=== PATIENT | male | born 1955 | race Caucasian/White ===

== ENCOUNTER 2017-11-12 14:25 | Inpatient (IN) | payer MEDICARE ==
[2017-11-12 14:25] VITALS: BMI 34.9
--- NOTE | 2017-11-12 15:49 | C.PDOC ---
History Of Present Illness 62yo male, with history of diabetes, chronic renal failure on dialysis for the past 6 years went today for his usual dialysis treatment when he was noted to be tremulous, running a fever and was sent to ER for evaluation. Patient currently reports he has had cough for the past couple days with associated chills. He denies any shortness of breath. Of note, patient is anuric. He denies any abdominal pain, nausea, vomiting, diarrhea. Chief Complaint (Nursing): Fever History Per: Patient History/Exam Limitations: no limitations Associated Symptoms: Chills, Cough Past Medical History Reviewed: Historical Data, Nursing Documentation, Vital Signs Vital Signs: Last Vital Signs Temp 100.1 F H 11/12/17 17:24 Pulse 102 H 11/12/17 17:24 Resp 18 11/12/17 17:24 BP 112/60 11/12/17 15:06 Pulse Ox 95 11/12/17 17:52 - Medical History PMH: Cardia Arrhythmia, CHF, Diabetes, HTN, Hypercholesterolemia, Hyperthyroidism, End Stage Renal Disease (DIALYSIS T-T-S), Chronic Kidney Disease Surgical History: CABG, Coronary Stent (Diagonal branch 12/08), Pacemaker, Tonsillectomy - [facility] Procedures CONTINUOUS INVASIVE MECHANICAL VENTILATION <96 CONSEC HRS (04/12/14) CORONAR ARTERIOGR-2 CATH (12/09/13) HEMODIALYSIS (09/13/14) INSERT ENDOTRACHEAL TUBE (04/12/14) INSERTION OF ONE VASCULAR STENT (12/09/13) INSRT OF DRUG-ELUTING CORON ARTERY STENTS(S) (12/09/13) LEFT HEART CARDIAC CATH (10/22/13) LT HEART ANGIOCARDIOGRAM (10/22/13) OTHER BRONCHOSCOPY (09/13/14) PERCUTANEOUS TRANSLUMINAL CORONARY ANGIOPLASTY [PTCA] (12/09/13) PROCEDURE ON SINGLE VESSEL (12/09/13) THORACENTESIS (08/18/14) THORACOSCOPIC EXCISION OF LESION OR TISSUE OF LUNG (09/13/14) THORACOSCOPIC PLEURAL BIOPSY (09/13/14) VACCINATION NEC (08/18/14) Family History: States: Unknown Family Hx - Social History Hx Tobacco Use: No Hx Alcohol Use: No Hx Substance Use: No - Immunization History Hx Tetanus Toxoid Vaccination: Yes Hx Influenza Vaccination: Yes Hx Pneumococcal Vaccination: Yes Review Of Systems Except As Marked, All Systems Reviewed And Found Negative. Constitutional: Positive for: Fever, Chills Respiratory: Positive for: Cough Gastrointestinal: Negative for: Nausea, Vomiting, Abdominal Pain, Diarrhea Physical Exam - Physical Exam Appears: Non-toxic Skin: Warm, Dry, No Cyanotic Head: Atraumatic, Normacephalic Eye(s): bilateral: Normal Inspection Neck: Normal ROM, Supple Chest: Symmetrical Cardiovascular: Rhythm Regular (S1S2 sounds normal ) Respiratory: Rales (bibasilar rales noted) Gastrointestinal/Abdominal: Normal Exam, Bowel Sounds, Soft, No Tenderness Extremity: Other (fistula noted right forearm) Pulses: Left Radial: Normal, Right Radial: Normal, Left Dorsalis Pedis: Normal, Right Dorsalis Pedis: Normal Neurological/Psych: Oriented x3, Normal Speech, Normal Cognition ED Course And Treatment - Laboratory Results Result Diagrams: 11/12/17 16:15 11/12/17 16:15 O2 Sat by Pulse Oximetry: 95 (RA) Pulse Ox Interpretation: Normal Medical Decision Making Medical Decision Making: Pt with pos influenza,noted to have RML infiltrate as well as borderline hypoxia at 91%.Case discussed with Dr Burnett and Dr Hoffmann.Will admit,abiotics and tamiflu initiated Disposition - Disposition Disposition: HOSPITALIZED Condition: FAIR Forms: [facility] (Sinhala) - Clinical Impression Clinical Impression: Fever, Influenza-like illness, Pneumonia - Scribe Statement The provider has reviewed the documentation as recorded by the Scribe (Chica Zuniga) Provider Attestation: All medical record entries made by the Scribe were at my direction and personally dictated by me. I have reviewed the chart and agree that the record accurately reflects my personal performance of the history, physical exam, medical decision making, and the department course for this patient. I have also personally directed, reviewed, and agree with the discharge instructions and disposition.
[2017-11-12 16:21] LABS: BASO # 0.1 K/uL (0.0-0.2); BASO % 0.9 % (0.0-2.0); EOS # 0.2 K/uL (0.0-0.7); EOS % 2.3 % (0.0-4.0); LYMPH # 0.3 K/uL (1.0-4.3); LYMPH % 3.4 % (20.0-40.0); MEAN CELL VOLUME 90.4 fL (80.0-94.0); MEAN CORPUSCULAR HGB CONC 33.2 g/dL (33.0-37.0); MEAN PLATELET VOLUME 9.3 fL (7.2-11.7); MONO # 1.1 K/uL (0.0-0.8); MONO % 12.4 % (0.0-10.0); NEUT # 6.9 K/uL (1.8-7.0); NRBC % 0.1 % (0.0-2.0); PLATELET COUNT 149 K/uL (130-400); RBC 4.77 Mil/uL (4.40-5.90); RED CELL DISTRIBUTION WIDTH 16.5 % (11.5-14.5); WHITE BLOOD COUNT 8.6 K/uL (4.8-10.8)
[2017-11-12 16:25] LABS: HEMOGLOBIN 14.3 g/dL (12.0-18.0)
[2017-11-12 16:33] LABS: ALBUMIN 4.2 g/dL (3.5-5.0); CALCIUM 9.5 mg/dl (8.6-10.4)
--- NOTE | 2017-11-12 16:44 | RAD ---
HISTORY: SOB COMPARISON: Chest x-ray performed 09/22/14 TECHNIQUE: Chest, one view. FINDINGS: Examination limited by habitus. LUNGS: Patchy right middle lobe opacities suspicious for pneumonia. Interstitial prominence may reflect infection or edema. PLEURA: No significant pleural effusion identified. No definite pneumothorax . CARDIOVASCULAR: Cardiomegaly. Median sternotomy wires. Left-sided AICD. OSSEOUS STRUCTURES: Degenerative changes. VISUALIZED UPPER ABDOMEN: Unremarkable. OTHER FINDINGS: None. IMPRESSION: Patchy right middle lobe opacities suspicious for pneumonia. Interstitial prominence may reflect infection or edema. Recommend follow-up to resolution. Cardiomegaly. Median sternotomy wires. Left-sided AICD.
[2017-11-12] MEDS ORDERED: Sodium Chloride 0.9% 500 ML IV ONE ×2 (16:51→17:00)
[2017-11-12 17:09] LABS: EOSINOPHIL 1 % (0-4); LYMPHOCYTE 7 % (20-40); MONOCYTE 11 % (0-10); NEUTROPHIL 81 % (50-75); PLATELET ESTIMATE NORMAL (NORMAL); TOTAL CELLS COUNTED 100
[2017-11-12] MEDS ORDERED: Piperacillin/Tazobact 3.375 GM in Sodium Chloride 100 ML IVPB SCH (18:00)
[2017-11-12] MEDS ORDERED: Vancomycin 1 gm/NS 200 ml 1 GM/200 ML BAG IVPB ONE (19:00)
[2017-11-12] MEDS: Piperacill/Tazo 2.25gm in Dex 2.25 GM/50 ML BAG IVPB SCH (20:51)
--- NOTE | 2017-11-12 22:50 | CP.PCM.CON ---
History of Present Illness - History of Present Illness History of Present Illness: REASONS FOR CONSULT : ESRD ON HD TTS ANEMIA OF CKD .. H/H GOOD PT IS WELL KNOWN TO OUR RENAL SERVICE ,, ON HD TTS WITH [facility] SR ADMITTED FOR FLU A AND R MIDDLE LOBE INFILTRATE ALL PREVIOUS EMR REVIEWED .. LABS REVIEWED .. CASE D/W ER ATTENDING History Of Present Illness 62yo male, with history of diabetes, chronic renal failure on dialysis for the past 6 years went today for his usual dialysis treatment when he was noted to be tremulous, running a fever and was sent to ER for evaluation. Patient currently reports he has had cough for the past couple days with associated chills. He denies any shortness of breath. Of note, patient is anuric. He denies any abdominal pain, nausea, vomiting, diarrhea. Chief Complaint (Nursing): Fever History Per: Patient History/Exam Limitations: no limitations Associated Symptoms: Chills, Cough Past Medical History Reviewed: Historical Data, Nursing Documentation, Vital Signs Vital Signs: Last Vital Signs Temp 100.1 F H 11/12/17 17:24 Pulse 102 H 11/12/17 17:24 Resp 18 11/12/17 17:24 BP 112/60 11/12/17 15:06 Pulse Ox 95 11/12/17 17:52 - Medical History PMH: Cardia Arrhythmia, CHF, Diabetes, HTN, Hypercholesterolemia, Hyperthyroidism, End Stage Renal Disease (DIALYSIS T-T-S), Chronic Kidney Disease Surgical History: CABG, Coronary Stent (Diagonal branch 12/08), Pacemaker, Tonsillectomy - [facility] Procedures Past Patient History - Past Medical History & Family History Past Medical History?: Yes - Past Social History Smoking Status: Never Smoked - CARDIAC Hx Cardia Arrhythmia: Yes Hx Congestive Heart Failure: Yes Hx Hypercholesterolemia: Yes Hx Hypertension: Yes Hx Pacemaker: Yes - NEUROLOGICAL HX Cerebrovascular Accident: Yes (many years ago) Hx Paralysis: No - HEENT Hx HEENT Problems: No - RENAL Hx Chronic Kidney Disease: Yes - ENDOCRINE/METABOLIC Hx Hyperthyroidism: Yes - HEMATOLOGICAL/ONCOLOGICAL Hx Blood Disorders: No Hx Blood Transfusions: No Hx Blood Transfusion Reaction: No - INTEGUMENTARY Hx Dermatological Problems: No - MUSCULOSKELETAL/RHEUMATOLOGICAL Hx Falls: No - GASTROINTESTINAL Hx Gastrointestinal Disorders: No - GENITOURINARY/GYNECOLOGICAL Hx Genitourinary Disorders: No - PSYCHIATRIC Hx Substance Use: No - SURGICAL HISTORY Hx Coronary Artery Bypass Graft: Yes Hx Coronary Stent: Yes (Diagonal branch 12/08) Hx Tonsillectomy: Yes - ANESTHESIA Hx Anesthesia: Yes Hx Anesthesia Reactions: No Hx Malignant Hyperthermia: No Meds Allergies/Adverse Reactions: Allergies Allergy/AdvReac Type Severity Reaction Status Date / Time No Known Allergies Allergy Verified 11/12/17 14:39 - Medications Medications: Current Medications Acetaminophen (Tylenol 325mg Tab) 650 mg PO Q6 PRN PRN Reason: Fever >100.4 F Albuterol Sulfate (Albuterol 0.083% Inhal Haydee (2.5 Mg/3 Ml) Ud) 2.5 mg IH Q8 [facility] Allopurinol (Zyloprim) 100 mg PO DAILY [facility] Amlodipine Besylate (Norvasc) 5 mg PO DAILY [facility] Ergocalciferol (Drisdol 50,000 Intl Units Cap) 1 cap PO QWK [facility] Gabapentin (Neurontin) 300 mg PO BID [facility] Heparin Sodium (Porcine) (Heparin) 5,000 units SC Q12 [facility] Home Med (B Complex W-C No.20/Folic Acid [Renal Caps Softgel]) 1 mg PO BID [facility] Home Med (Beclomethasone Dipropionate [Qvar 80 Mcg]) 0.08 mg IH BID [facility] Home Med (Insulin Glargine,Hum.Rec.Anlog [Lantus Solostar]) 30 unit SQ HS [facility] Home Med (Linaclotide [Linzess]) 290 mcg PO DAILY [facility] Piperacillin Sod/Tazobactam Sod (Zosyn 2.25 Gm Iv Premix) 2.25 gm in 50 mls @ 100 mls/hr IVPB Q8H [facility] Last Admin: 11/12/17 20:51 Dose: 100 mls/hr Piperacillin Sod/Tazobactam Sod (Zosyn 2.25 Gm Iv Premix) 2.25 gm in 50 mls @ 100 mls/hr IVPB Q6H [facility] Insulin Aspart (Novolog) 0 unit SC ACHS [facility] PRN Reason: Protocol Labetalol HCl (Trandate) 300 mg PO BID [facility] Oseltamivir Phosphate (Tamiflu Cap) 75 mg PO DAILY [facility] Stop: 11/17/17 22:24 Pantoprazole Sodium (Protonix Ec Tab) 40 mg PO DAILY [facility] Sevelamer Carbonate (Renvela) 800 mg PO TID [facility] Zolpidem Tartrate (Ambien) 5 mg PO HS PRN PRN Reason: Insomnia Results - Vital Signs Recent Vital Signs: Last Vital Signs Temp 102.7 F H 11/12/17 20:40 Pulse 76 11/12/17 18:35 Resp 18 11/12/17 18:35 BP 113/71 11/12/17 18:35 Pulse Ox 99 11/12/17 18:35 - Labs Result Diagrams: 11/12/17 16:15 11/12/17 16:15 Labs: Laboratory Results - last 24 hr 11/12/17 11/12/17 11/12/17 15:49 16:15 16:15 WBC 8.6 RBC 4.77 Hgb 14.3 D Hct 43.1 MCV 90.4 MCH 30.0 MCHC 33.2 RDW 16.5 H Plt Count 149 MPV 9.3 Neut % (Auto) 81.0 H Lymph % (Auto) 3.4 L Parmer % (Auto) 12.4 H Eos % (Auto) 2.3 Baso % (Auto) 0.9 Neut # (Auto) 6.9 Lymph # (Auto) 0.3 L Parmer # (Auto) 1.1 H Eos # (Auto) 0.2 Baso # (Auto) 0.1 Neutrophils % (Manual) 81 H Lymphocytes % (Manual) 7 L Monocytes % (Manual) 11 H Eosinophils % (Manual) 1 Platelet Estimate Normal Sodium 136 Potassium 5.0 Chloride 85 L Carbon Dioxide 37 H Anion Gap 20 BUN 24 H Creatinine 4.6 H Est GFR ( Amer) 16 Est GFR (Non-Af Amer) 13 Random Glucose 189 H Lactic Acid Calcium 9.5 Total Bilirubin 0.8 AST 9 L ALT 11 L Alkaline Phosphatase 151 H Total Protein 8.6 H Albumin 4.2 Globulin 4.4 H Albumin/Globulin Ratio 1.0 Acetaminophen Influenza Typ A,B (EIA) Pos for influenza a H 11/12/17 11/12/17 16:15 17:22 WBC RBC Hgb Hct MCV MCH MCHC RDW Plt Count MPV Neut % (Auto) Lymph % (Auto) Parmer % (Auto) Eos % (Auto) Baso % (Auto) Neut # (Auto) Lymph # (Auto) Parmer # (Auto) Eos # (Auto) Baso # (Auto) Neutrophils % (Manual) Lymphocytes % (Manual) Monocytes % (Manual) Eosinophils % (Manual) Platelet Estimate Sodium Potassium Chloride Carbon Dioxide Anion Gap BUN Creatinine Est GFR ( Amer) Est GFR (Non-Af Amer) Random Glucose Lactic Acid 2.9 H Calcium Total Bilirubin AST ALT Alkaline Phosphatase Total Protein Albumin Globulin Albumin/Globulin Ratio Acetaminophen < 10.0 L Influenza Typ A,B (EIA) Assessment & Plan - Assessment and Plan (Free Text) Assessment: ESRD ON HD TTS ,, TO BE C/O ANEMIA OF CKD .. H/H EXCELLENT .. HOLD EPO PNEUMONIA ON IVAB MMP P : C/O HD ON TTS .. PT COMPLETED HIS HD TODAY C/O CURRENT MEDS C/O IVAB RENAL AND DIABETIC DIET - Date & Time Date: 11/12/17 Time: 17:00
[2017-11-13] MEDS: Piperacill/Tazo 2.25gm in Dex 2.25 GM/50 ML BAG IVPB SCH ×3 (03:00→19:21)
[2017-11-13] MEDS ORDERED: Piperacill/Tazo 2.25gm in Dex 2.25 GM/50 ML BAG IVPB SCH ×2 (04:00→10:00)
[2017-11-13] MEDS ORDERED: Albuterol 0.083% Inhal Sol (2.5 mg/3 mL) UD IH SCH (06:00)
--- NOTE | 2017-11-13 06:52 | HP ---
HISTORY OF PRESENT ILLNESS: This is a 62-year-old male with history of multiple medical problems including end-stage renal disease, on hemodialysis, was referred from dialysis center because of fever and rigors. The patient was evaluated in the emergency room and he was found to have temperature of 102.7, as well as positive for influenza and pneumonia. Subsequently, the patient was admitted for further management. The patient denied to have any chest pain or shortness of breath. Positive symptoms of cough. Other review of system is negative. ALLERGIES: NO KNOWN ALLERGIES. MEDICATIONS: As per MAR. SOCIAL HISTORY: No history of smoking, EtOH or substance abuse. PAST MEDICAL HISTORY: Hypertension; end-stage renal disease, on hemodialysis; type 2 diabetes mellitus. PHYSICAL EXAMINATION: GENERAL/VITAL SIGNS: The patient is in bed comfortable, not in any cardiopulmonary distress at the time of this examination with temperature 102.7, blood pressure 113/71, respiratory rate 18 and pulse 102. HEENT: Pupils are equal and reactive to light. Normal-appearing mucosa of the conjunctivae, oropharynx and nasal membrane mucosa. NECK: Supple. No JVD. No carotid bruit. No lymph nodes. No thyromegaly. CHEST/LUNGS: Bilateral symmetrical expansion. Positive bilateral basilar rales. CARDIOVASCULAR SYSTEM: PMI not localized. S1 and S2. No additional sounds. ABDOMEN: Normoactive bowel sounds. No tenderness. No organomegaly. No masses. EXTREMITIES: No cyanosis, no clubbing, no edema. IT SALES REPRESENTATIVE: Alert, awake, oriented x2. No neurological deficit could be appreciated. ASSESSMENT: 1. Healthcare-acquired pneumonia. 2. Influenza A positive. 3. Pneumonia. 4. End-stage renal disease, on hemodialysis. PLAN: We will start the patient on Tamiflu 75 mg once a day, Zosyn and vancomycin, Nephrology consult for dialysis orders, and we will resume the patient's home medications. Discussed the patient's condition with the patient as well as his at the bedside. Mi Hoffmann MD
[2017-11-13] MEDS ORDERED: Home Med 1 UNIT (Linaclotide [Linzess] 290 MCG) PO SCH ×2 (10:00)
[2017-11-13] MEDS ORDERED: [UNRECOGNIZED DRUG - REMARK] PO SCH (10:00)
[2017-11-13] MEDS ORDERED: BECLOMETHASONE DIPROPIONATE 0.08 MG IH SCH (10:00)
[2017-11-13] MEDS: Pantoprazole 40 mg EC Tab PO SCH (10:26)
[2017-11-13] MEDS: Multivitamin Vitamin B Complex (Nephro-Vite) Tab PO SCH (10:26)
[2017-11-13] MEDS: (Novolog) Insulin Aspart, Recombinant 100 u/ml 10 ml vial SC SCH ×4 (10:27→22:17)
[2017-11-13] MEDS: Oseltamivir 6 MG/ML PO SCH (12:43)
--- NOTE | 2017-11-13 17:06 | CP.PCM.CON ---
History of Present Illness - History of Present Illness History of Present Illness: INFECTIOUS DISEASE CONSULT; HPI; 62-year-old male with history of ESRD on hemodialysis TTS, for the past 6 years who was admitted on 11/12/17 as he was referred from dialysis unit when he was noted to be running a fever and increased tremulousness. Patient also complained of cough for the past couple of days with associated chills. In the ER chest x-ray revealed patchy right middle lobe opacities suggestive of pneumonia.Influenza rapid antigen test revealed positive for influenza A. Patient was started on Tamiflu,, Zosyn and one dose of vancomycin 1 g was given on 11/12/17. INFECTIOUS DISEASE CONSULTATION REQUESTED BY PMD DR HEARD FOR PNEUMONIA AND INFLUENZA A. Patient denies any abdominal pain, nausea or vomiting or diarrhea. Patient denies any headache. Patient states he is had these tremors for some time. Denies history of seizure disorder but states he has history off permanent pacemaker, CAD with stent and CABG. PATIENT DENIES ANY SICK CONTACTS OR ANY RECENT TRAVEL EXCEPT GOING TO THE DIALYSIS UNIT. ALLERGY; NKA PMH: Cardia Arrhythmia, CHF, Diabetes, HTN, Hypercholesterolemia, Hyperthyroidism, End Stage Renal Disease (DIALYSIS T-T-S), Chronic Kidney Disease Surgical History: CABG, Coronary Stent (Diagonal branch 12/08), Pacemaker, Tonsillectomy - [facility] Procedures CONTINUOUS INVASIVE MECHANICAL VENTILATION <96 CONSEC HRS (04/12/14) CORONAR ARTERIOGR-2 CATH (12/09/13) HEMODIALYSIS (09/13/14) INSERT ENDOTRACHEAL TUBE (04/12/14) INSERTION OF ONE VASCULAR STENT (12/09/13) INSRT OF DRUG-ELUTING CORON ARTERY STENTS(S) (12/09/13) LEFT HEART CARDIAC CATH (10/22/13) LT HEART ANGIOCARDIOGRAM (10/22/13) OTHER BRONCHOSCOPY (09/13/14) PERCUTANEOUS TRANSLUMINAL CORONARY ANGIOPLASTY [PTCA] (12/09/13) PROCEDURE ON SINGLE VESSEL (12/09/13) THORACENTESIS (08/18/14) THORACOSCOPIC EXCISION OF LESION OR TISSUE OF LUNG (09/13/14) THORACOSCOPIC PLEURAL BIOPSY (09/13/14) VACCINATION NEC (08/18/14) Family History: States: Unknown Family Hx - Social History Hx Tobacco Use: No Hx Alcohol Use: No Hx Substance Use: No - Immunization History Hx Tetanus Toxoid Vaccination: Yes Hx Influenza Vaccination: Yes Hx Pneumococcal Vaccination: Yes Review of Systems - Constitutional Constitutional: Chills, Fever. absent: Headache - EENT Eyes: absent: Change in Vision Ears: absent: Disequilibrium Nose/Mouth/Throat: absent: Nasal Congestion, Sinus Pain - Cardiovascular Cardiovascular: absent: Chest Pain, Palpitations - Respiratory Respiratory: Cough, Chest Congestion. absent: Change in Mucous Color - Gastrointestinal Gastrointestinal: absent: Constipation, Diarrhea - Genitourinary Additional comments: PATIENT ANURIC ON HEMODIALYSIS TTS. - Musculoskeletal Musculoskeletal: Back Pain, Radiating Pain into Limb - Neurological Neurological: Tremor. absent: Focal Weakness, Headaches, Sensory Deficit - Hematologic/Lymphatic Hematologic: As Per HPI. absent: Easy Bleeding Past Patient History - Past Medical History & Family History Past Medical History?: Yes - Past Social History Smoking Status: Current Some Days Smoker - CARDIAC Hx Cardia Arrhythmia: Yes Hx Congestive Heart Failure: Yes Hx Hypercholesterolemia: Yes Hx Hypertension: Yes Hx Pacemaker: Yes - NEUROLOGICAL HX Cerebrovascular Accident: Yes (many years ago) Hx Paralysis: No - HEENT Hx HEENT Problems: No - RENAL Date of Last Dialysis Treatment: 11/11/17 - ENDOCRINE/METABOLIC Hx Hyperthyroidism: Yes - HEMATOLOGICAL/ONCOLOGICAL Hx Blood Disorders: No Hx Blood Transfusions: No Hx Blood Transfusion Reaction: No - INTEGUMENTARY Hx Dermatological Problems: No - MUSCULOSKELETAL/RHEUMATOLOGICAL Hx Falls: No - GASTROINTESTINAL Hx Gastrointestinal Disorders: No - GENITOURINARY/GYNECOLOGICAL Hx Genitourinary Disorders: No - PSYCHIATRIC Hx Substance Use: No - SURGICAL HISTORY Hx Coronary Artery Bypass Graft: Yes Hx Coronary Stent: Yes (Diagonal branch 12/08) Hx Tonsillectomy: Yes - ANESTHESIA Hx Anesthesia: Yes Hx Anesthesia Reactions: No Hx Malignant Hyperthermia: No Has any member of the family had a problem w/ anesthesia?: No Meds Allergies/Adverse Reactions: Allergies Allergy/AdvReac Type Severity Reaction Status Date / Time No Known Allergies Allergy Verified 11/12/17 14:39 - Medications Medications: Current Medications Acetaminophen (Tylenol 325mg Tab) 650 mg PO Q6 PRN PRN Reason: Fever >100.4 F Last Admin: 11/13/17 00:41 Dose: 650 mg Albuterol Sulfate (Albuterol 0.083% Inhal Haydee (2.5 Mg/3 Ml) Ud) 2.5 mg IH RQ8 [facility] Allopurinol (Zyloprim) 100 mg PO DAILY [facility] Last Admin: 11/13/17 10:26 Dose: 100 mg Amlodipine Besylate (Norvasc) 5 mg PO DAILY [facility] Last Admin: 11/13/17 10:27 Dose: 5 mg Ergocalciferol (Drisdol 50,000 Intl Units Cap) 1 cap PO Q7D [facility] Gabapentin (Neurontin) 300 mg PO BID [facility] Last Admin: 11/13/17 10:26 Dose: 300 mg Heparin Sodium (Porcine) (Heparin) 5,000 units SC Q12 [facility] Last Admin: 11/13/17 10:27 Dose: 5,000 units Piperacillin Sod/Tazobactam Sod (Zosyn 2.25 Gm Iv Premix) 2.25 gm in 50 mls @ 100 mls/hr IVPB Q8H [facility] Last Admin: 11/13/17 12:34 Dose: 100 mls/hr Insulin Aspart (Novolog) 0 unit SC ACHS [facility] PRN Reason: Protocol Last Admin: 11/13/17 12:44 Dose: 2 unit Insulin Glargine (Lantus) 30 unit SC HS [facility] Labetalol HCl (Trandate) 300 mg PO BID [facility] Last Admin: 11/13/17 10:28 Dose: 300 mg Mometasone Furoate (Asmanex Twisthaler 220 Mcg) 1 puff INH RQ24 [facility] Oseltamivir Phosphate (Tamiflu Susp) 30 mg PO DAILY [facility] Last Admin: 11/13/17 12:43 Dose: 30 mg Pantoprazole Sodium (Protonix Ec Tab) 40 mg PO DAILY [facility] Last Admin: 11/13/17 10:26 Dose: 40 mg Sevelamer Carbonate (Renvela) 800 mg PO TIDCC [facility] Last Admin: 11/13/17 12:34 Dose: 800 mg Vitamin B Complex/Vit C/Folic Acid (Nephro-Joss) 1 tab PO DAILY [facility] Last Admin: 11/13/17 10:26 Dose: 1 tab Zolpidem Tartrate (Ambien) 5 mg PO HS PRN PRN Reason: Insomnia Physical Exam - Constitutional Appears: No Acute Distress - Head Exam Head Exam: NORMAL INSPECTION - Eye Exam Eye Exam: EOMI, PERRL - ENT Exam ENT Exam: Normal Oropharynx - Neck Exam Neck exam: Positive for: Normal Inspection - Respiratory Exam Respiratory Exam: Rhonchi (RIGHT-SIDED.). absent: Wheezes - Cardiovascular Exam Cardiovascular Exam: Tachycardia, REGULAR RHYTHM, +S1, +S2 - GI/Abdominal Exam GI & Abdominal Exam: Normal Bowel Sounds, Soft. absent: Tenderness - Extremities Exam Extremities exam: Positive for: pedal pulses present. Negative for: calf tenderness, pedal edema - Neurological Exam Neurological exam: Alert, CN II-XII Intact, Oriented x3, Reflexes Normal - Skin Skin Exam: Dry, Normal Color, Warm Results - Vital Signs Recent Vital Signs: Last Vital Signs Temp 99.1 F 11/13/17 07:20 Pulse 92 H 11/13/17 07:20 Resp 20 11/13/17 07:20 BP 143/73 11/13/17 07:20 Pulse Ox 95 11/13/17 07:20 - Labs Result Diagrams: 11/12/17 16:15 11/12/17 16:15 Labs: Laboratory Results - last 24 hr 11/12/17 11/12/17 11/12/17 16:15 17:22 23:23 Neutrophils % (Manual) 81 H Lymphocytes % (Manual) 7 L Monocytes % (Manual) 11 H Eosinophils % (Manual) 1 Platelet Estimate Normal POC Glucose (mg/dL) 156 H Random Vancomycin Acetaminophen < 10.0 L 11/13/17 11/13/17 11/13/17 06:52 07:35 11:46 Neutrophils % (Manual) Lymphocytes % (Manual) Monocytes % (Manual) Eosinophils % (Manual) Platelet Estimate POC Glucose (mg/dL) 154 H 168 H Random Vancomycin 16.07 Acetaminophen - Imaging and Cardiology Chest x-ray Status: Report reviewed by me (chest x-ray patchy right middle lobe opacities suggestive of pneumonia.) Assessment & Plan (1) Pneumonia Status: Acute (2) Influenza A Status: Acute (3) Fever Status: Acute (4) Congestive heart failure Status: Chronic Priority: Low (5) Coronary artery disease Status: Chronic Priority: Low (6) ESRD (end stage renal disease) on dialysis Status: Chronic Priority: Medium (7) Type II diabetes mellitus Status: Chronic Priority: Low - Assessment and Plan (Free Text) Plan: PLAN; PANCULTURES. ESR CRP. MRSA SCREEN-NARES. SPUTUM gRAM STAIN AND CULTURE CONTINUE iv BY MOUTH TAMIFLU 30 MG BY MOUTH DAILY.11/12/17. CONTINUE ZOSYN 2.25 EVERY 8 HOURLY.11/12/17. CONTINUE iv VANCOMYCIN 1 G POST EACH HEMODIALYSIS TTS X 5 DOSES. 11/12/17 MONITOR VANCO TROUGH LEVELS AND KEEP BETWEEN 10 AND 20. [place] PRECAUTIONS FOR INFLUENZ A. WE WILL FOLLOW ALONG WITH YOU AND MAKE ANTIBIOTIC ADJUSTMENTS NEEDED. THANK YOU.
[2017-11-13] MEDS: Albuterol 0.083% Inhal Sol (2.5 mg/3 mL) UD IH SCH ×2 (17:16→23:51)
[2017-11-13] MEDS: (Lantus) Insulin Glargine, Recombinant SC SCH (22:16)
[2017-11-14] MEDS: Piperacill/Tazo 2.25gm in Dex 2.25 GM/50 ML BAG IVPB SCH ×3 (03:20→21:00)
--- NOTE | 2017-11-14 03:54 | PN ---
DATE: 11/13/2017 SUBJECTIVE: The patient is seen today on 11/13/2017. He is not in any cardiopulmonary distress. OBJECTIVE: VITAL SIGNS: Blood pressure 143/73, temperature 99.1, respiratory rate 20, and pulse 92. HEENT: Pupils are equal and reactive to light. Normal-appearing mucosa of the conjunctivae, oropharynx and nasal membrane mucosa. NECK: Supple. No JVD. No carotid bruit. No lymph node. No thyromegaly. CHEST/LUNGS: Bilateral symmetrical expansion. Good air exchange. No rales or rhonchi. CARDIOVASCULAR SYSTEM: PMI not localized. S1, S2. No additional sounds. ABDOMEN: Normoactive bowel sounds. No tenderness. No organomegaly. No masses. EXTREMITIES: No cyanosis, no clubbing, no edema. SOCIAL WORKER: Alert, awake, oriented x2. No neurological deficit could be appreciated. ASSESSMENT: 1. Influenza A viral syndrome. 2. Pneumonia, healthcare-acquired pneumonia. 3. End-stage renal disease, on hemodialysis. 4. Hypertension. PLAN: Continue current IV antibiotics, ID consult and follow recommendations. Continue respiratory isolation. Adjust the doses of antibiotics according to kidney function. Mi Hoffmann MD
[2017-11-14] MEDS: (Novolog) Insulin Aspart, Recombinant 100 u/ml 10 ml vial SC SCH ×4 (07:43→22:00)
[2017-11-14] MEDS: Albuterol 0.083% Inhal Sol (2.5 mg/3 mL) UD IH SCH ×3 (08:07→23:34)
[2017-11-14] MEDS: Mometasone 220 mcg/puff-14 puff Inh INH SCH (08:35)
[2017-11-14] MEDS: Multivitamin Vitamin B Complex (Nephro-Vite) Tab PO SCH (10:32)
[2017-11-14 10:35] LABS: BASO % 0.6 % (0.0-2.0); EOS # 0.2 K/uL (0.0-0.7); EOS % 2.7 % (0.0-4.0); HEMOGLOBIN 13.4 g/dL (12.0-18.0); LYMPH % 15.6 % (20.0-40.0); MEAN CELL VOLUME 90.3 fL (80.0-94.0); MEAN CORPUSCULAR HEMOGLOBIN 30.1 pg (27.0-31.0); MEAN CORPUSCULAR HGB CONC 33.4 g/dL (33.0-37.0); MEAN PLATELET VOLUME 10.2 fL (7.2-11.7); MONO # 1.5 K/uL (0.0-0.8); MONO % 24.5 % (0.0-10.0); NEUT # 3.5 K/uL (1.8-7.0); NEUT % 56.6 % (50.0-75.0); RBC 4.44 Mil/uL (4.40-5.90); RED CELL DISTRIBUTION WIDTH 16.8 % (11.5-14.5); WHITE BLOOD COUNT 6.3 K/uL (4.8-10.8)
[2017-11-14] MEDS: Labetalol Hydrochloride 300 mg Tab PO SCH ×2 (10:35→18:51)
[2017-11-14] MEDS: Pantoprazole 40 mg EC Tab PO SCH (10:36)
[2017-11-14] MEDS: Oseltamivir 6 MG/ML PO SCH ×2 (10:36→18:50)
[2017-11-14] MEDS: Vancomycin 1 gm/NS 200 ml 1 GM/200 ML BAG IVPB SCH ×2 (10:36→18:52)
[2017-11-14 10:38] LABS: PLATELET COUNT 113 K/uL (130-400)
[2017-11-14 11:12] LABS: ALBUMIN 3.8 g/dL (3.5-5.0); CALCIUM 8.8 mg/dl (8.6-10.4)
[2017-11-14 11:35] LABS: BANDS 6 % (0-2); BASOPHIL 2 % (0-2); EOSINOPHIL 1 % (0-4); LYMPHOCYTE 13 % (20-40); MONOCYTE 15 % (0-10); NEUTROPHIL 62 % (50-75); REACTIVE LYMPHOCYTES 1 % (0-0); TOTAL CELLS COUNTED 100
[2017-11-14 11:36] LABS: ANISOCYTOSIS SLIGHT; OVALOCYTES SLIGHT; PLATELET ESTIMATE SLIGHTLY DECREASED (NORMAL)
[2017-11-14 11:46] LABS: BASO # 0.1 K/uL (0.0-0.2); BASO % 1.1 % (0.0-2.0); EOS # 0.2 K/uL (0.0-0.7); EOS % 3.6 % (0.0-4.0); HEMOGLOBIN 13.5 g/dL (12.0-18.0); LYMPH % 16.9 % (20.0-40.0); MEAN CELL VOLUME 91.4 fL (80.0-94.0); MEAN CORPUSCULAR HEMOGLOBIN 29.9 pg (27.0-31.0); MEAN CORPUSCULAR HGB CONC 32.7 g/dL (33.0-37.0); MEAN PLATELET VOLUME 10.2 fL (7.2-11.7); MONO # 1.5 K/uL (0.0-0.8); NEUT # 3.3 K/uL (1.8-7.0); NEUT % 53.4 % (50.0-75.0); NRBC % 0.2 % (0.0-2.0); RBC 4.52 Mil/uL (4.40-5.90); RED CELL DISTRIBUTION WIDTH 16.9 % (11.5-14.5); WHITE BLOOD COUNT 6.1 K/uL (4.8-10.8)
[2017-11-14] MEDS: (Lantus) Insulin Glargine, Recombinant SC SCH (21:28)
--- NOTE | 2017-11-14 22:29 | CP.PCM.PN ---
Subjective - Date & Time of Evaluation Date of Evaluation: 11/14/17 Time of Evaluation: 22:29 - Subjective Subjective: TEMP 99.0 VS NOTED SEEN ON HD TODAY. C/O COUGH. DENIES SOB OR CHEST PAIN LABS REVIEWED. wbc 6.1 WITH 6% BANDS H/H STABLE pLATELETS 112. DECREASING. ESR 25, CRP >15 bLOOD CULTURES NEGATIVE GROWTH TO DATE SPUTUM CULTURE SENSITIVITY -PENDING Objective - Vital Signs/Intake and Output Vital Signs (last 24 hours): Temp Pulse Resp BP Pulse Ox 97.6 F 52 L 18 150/76 100 11/14/17 17:45 11/14/17 17:45 11/14/17 17:45 11/14/17 17:45 11/14/17 17:45 Intake and Output: 11/14/17 11/15/17 18:59 06:59 Intake Total 240 Output Total 5 Balance 235 - Medications Medications: Current Medications Acetaminophen (Tylenol 325mg Tab) 650 mg PO Q6 PRN PRN Reason: Fever >100.4 F Last Admin: 11/13/17 00:41 Dose: 650 mg Albuterol Sulfate (Albuterol 0.083% Inhal Haydee (2.5 Mg/3 Ml) Ud) 2.5 mg IH RQ8 [facility] Last Admin: 11/14/17 20:32 Dose: Not Given Allopurinol (Zyloprim) 100 mg PO DAILY [facility] Last Admin: 11/14/17 10:36 Dose: Not Given Amlodipine Besylate (Norvasc) 5 mg PO DAILY [facility] Last Admin: 11/14/17 10:35 Dose: Not Given Ergocalciferol (Drisdol 50,000 Intl Units Cap) 1 cap PO Q7D [facility] Gabapentin (Neurontin) 300 mg PO BID [facility] Last Admin: 11/14/17 18:51 Dose: 300 mg Heparin Sodium (Porcine) (Heparin) 5,000 units SC Q12 [facility] Last Admin: 11/14/17 21:28 Dose: 5,000 units Piperacillin Sod/Tazobactam Sod (Zosyn 2.25 Gm Iv Premix) 2.25 gm in 50 mls @ 100 mls/hr IVPB Q8H [facility] Last Admin: 11/14/17 21:00 Dose: 100 mls/hr Vancomycin/Sodium Chloride (Vancomycin 1 Gm/Ns 200 Ml) 1 gm in 200 mls @ 166.7 mls/hr IVPB TTS [facility] Stop: 11/19/17 10:01 Last Admin: 11/14/17 18:52 Dose: 166.7 mls/hr Insulin Aspart (Novolog) 0 unit SC ACHS [facility] PRN Reason: Protocol Last Admin: 11/14/17 18:51 Dose: Not Given Insulin Glargine (Lantus) 30 unit SC HS [facility] Last Admin: 11/14/17 21:28 Dose: 30 units Labetalol HCl (Normodyne) 300 mg PO BID [facility] Last Admin: 11/14/17 18:51 Dose: 300 mg Mometasone Furoate (Asmanex Twisthaler 220 Mcg) 1 puff INH RQ24 [facility] Last Admin: 11/14/17 08:35 Dose: Not Given Oseltamivir Phosphate (Tamiflu Susp) 30 mg PO DAILY [facility] Last Admin: 11/14/17 18:50 Dose: 30 mg Pantoprazole Sodium (Protonix Ec Tab) 40 mg PO DAILY [facility] Last Admin: 11/14/17 10:36 Dose: Not Given Sevelamer Carbonate (Renvela) 800 mg PO TIDCC [facility] Last Admin: 11/14/17 18:52 Dose: 800 mg Vitamin B Complex/Vit C/Folic Acid (Nephro-Joss) 1 tab PO DAILY [facility] Last Admin: 11/14/17 10:32 Dose: 1 tab Zolpidem Tartrate (Ambien) 5 mg PO HS PRN PRN Reason: Insomnia - Labs Labs: 11/14/17 11:30 11/14/17 10:21 - Constitutional Appears: No Acute Distress - Head Exam Head Exam: NORMAL INSPECTION - Eye Exam Eye Exam: EOMI, PERRL. absent: Scleral icterus - ENT Exam ENT Exam: Normal Oropharynx - Neck Exam Neck Exam: Normal Inspection - Respiratory Exam Respiratory Exam: Rhonchi (RIGHT-SIDED.) - Cardiovascular Exam Cardiovascular Exam: REGULAR RHYTHM, +S1, +S2 - GI/Abdominal Exam GI & Abdominal Exam: Soft, Normal Bowel Sounds. absent: Organomegaly - Extremities Exam Extremities Exam: absent: Calf Tenderness, Pedal Edema - Neurological Exam Neurological Exam: Awake, CN II-XII Intact, Oriented x3, Reflexes Normal - Psychiatric Exam Psychiatric exam: Normal Mood - Skin Skin Exam: Normal Color, Warm Assessment and Plan (1) Pneumonia Status: Acute (2) Influenza A Status: Acute (3) Fever Status: Acute (4) Congestive heart failure Status: Chronic (5) Coronary artery disease Status: Chronic (6) ESRD (end stage renal disease) on dialysis Status: Chronic (7) Type II diabetes mellitus Status: Chronic - Assessment and Plan (Free Text) Plan: CONTINUE iv BY MOUTH TAMIFLU 30 MG BY MOUTH DAILY.11/12/17. CONTINUE ZOSYN 2.25 EVERY 8 HOURLY.11/12/17. CONTINUE iv VANCOMYCIN 1 G POST EACH HEMODIALYSIS TTS X 5 DOSES. 11/12/17 MONITOR VANCO TROUGH LEVELS AND KEEP BETWEEN 10 AND 20. [place] PRECAUTIONS FOR INFLUENZ A. F/U CULTURES AND ADJUST ANTIBIOTICS.
--- NOTE | 2017-11-14 23:34 | CP.PCM.PN ---
Subjective - Date & Time of Evaluation Date of Evaluation: 11/14/17 Time of Evaluation: 15:00 - Subjective Subjective: SEEN ON RENAL F/U SEEN ON HD FEELS MUCH BETTER LESS COUGH .. LESS SOB Objective - Vital Signs/Intake and Output Vital Signs (last 24 hours): Temp Pulse Resp BP Pulse Ox 97.6 F 52 L 18 150/76 100 11/14/17 17:45 11/14/17 17:45 11/14/17 17:45 11/14/17 17:45 11/14/17 17:45 Intake and Output: 11/14/17 11/15/17 18:59 06:59 Intake Total 240 Output Total 5 Balance 235 - Medications Medications: Current Medications Acetaminophen (Tylenol 325mg Tab) 650 mg PO Q6 PRN PRN Reason: Fever >100.4 F Last Admin: 11/13/17 00:41 Dose: 650 mg Albuterol Sulfate (Albuterol 0.083% Inhal Haydee (2.5 Mg/3 Ml) Ud) 2.5 mg IH RQ8 [facility] Last Admin: 11/14/17 20:32 Dose: Not Given Allopurinol (Zyloprim) 100 mg PO DAILY [facility] Last Admin: 11/14/17 10:36 Dose: Not Given Amlodipine Besylate (Norvasc) 5 mg PO DAILY [facility] Last Admin: 11/14/17 10:35 Dose: Not Given Ergocalciferol (Drisdol 50,000 Intl Units Cap) 1 cap PO Q7D [facility] Gabapentin (Neurontin) 300 mg PO BID [facility] Last Admin: 11/14/17 18:51 Dose: 300 mg Heparin Sodium (Porcine) (Heparin) 5,000 units SC Q12 [facility] Last Admin: 11/14/17 21:28 Dose: 5,000 units Piperacillin Sod/Tazobactam Sod (Zosyn 2.25 Gm Iv Premix) 2.25 gm in 50 mls @ 100 mls/hr IVPB Q8H [facility] Last Admin: 11/14/17 21:00 Dose: 100 mls/hr Vancomycin/Sodium Chloride (Vancomycin 1 Gm/Ns 200 Ml) 1 gm in 200 mls @ 166.7 mls/hr IVPB TTS [facility] Stop: 11/19/17 10:01 Last Admin: 11/14/17 18:52 Dose: 166.7 mls/hr Insulin Aspart (Novolog) 0 unit SC ACHS [facility] PRN Reason: Protocol Last Admin: 11/14/17 18:51 Dose: Not Given Insulin Glargine (Lantus) 30 unit SC HS [facility] Last Admin: 11/14/17 21:28 Dose: 30 units Labetalol HCl (Trandate) 100 mg PO BID [facility] Mometasone Furoate (Asmanex Twisthaler 220 Mcg) 1 puff INH RQ24 [facility] Last Admin: 11/14/17 08:35 Dose: Not Given Oseltamivir Phosphate (Tamiflu Susp) 30 mg PO DAILY [facility] Last Admin: 11/14/17 18:50 Dose: 30 mg Pantoprazole Sodium (Protonix Ec Tab) 40 mg PO DAILY [facility] Last Admin: 11/14/17 10:36 Dose: Not Given Sevelamer Carbonate (Renvela) 800 mg PO TIDCC [facility] Last Admin: 11/14/17 18:52 Dose: 800 mg Vitamin B Complex/Vit C/Folic Acid (Nephro-Joss) 1 tab PO DAILY [facility] Last Admin: 11/14/17 10:32 Dose: 1 tab Zolpidem Tartrate (Ambien) 5 mg PO HS PRN PRN Reason: Insomnia - Labs Labs: 11/14/17 11:30 11/14/17 10:21 Assessment and Plan - Assessment and Plan (Free Text) Assessment: ESRD ON HD TTS ANEMIA OF CKD .. H/H GOOD FLU A .. PNA .. ON IVAB MMP P C/O HD TTS C/O PRESENT MEDS
--- NOTE | 2017-11-15 04:12 | PN ---
DATE: 11/14/2017 SUBJECTIVE: The patient is seen today on 11/14/2017. He is not in any cardiopulmonary distress. The patient was seen during hemodialysis. OBJECTIVE: VITAL SIGNS: Blood pressure is 145/97, temperature 97.6, respiratory rate 18, and pulse 50. HEENT: Pupils are equal, reactive to light. Normal-appearing mucosa of the conjunctivae, oropharynx and nasal membrane mucosa. NECK: Supple. No JVD. No carotid bruit. No lymph node. No thyromegaly. CHEST AND LUNGS: Bilateral symmetrical expansion. Good air exchange. No rales, no rhonchi. CARDIOVASCULAR SYSTEM: PMI not localized. S1 and S2. No additional sounds. ABDOMEN: Normoactive bowel sounds. No tenderness. No organomegaly. No masses. EXTREMITIES: No cyanosis, no clubbing, no edema. REAL ESTATE INVESTMENT ANALYST: Alert, awake, oriented x2. No neurological deficit could be appreciated. ASSESSMENT: 1. Healthcare-related pneumonia. 2. Positive for influenza A viral syndrome. 3. End-stage renal disease, on hemodialysis. 4. Hypertension. 5. Sinus bradycardia. PLAN: We will decrease labetalol to 100 mg twice a day with parameters. Continue current medications. Mi Hoffmann MD
[2017-11-15] MEDS: Piperacill/Tazo 2.25gm in Dex 2.25 GM/50 ML BAG IVPB SCH ×3 (04:18→21:00)
[2017-11-15 07:42] LABS: BASO # 0.1 K/uL (0.0-0.2); EOS # 0.4 K/uL (0.0-0.7); EOS % 7.2 % (0.0-4.0); HEMOGLOBIN 13.2 g/dL (12.0-18.0); LYMPH # 0.9 K/uL (1.0-4.3); LYMPH % 15.4 % (20.0-40.0); MEAN CELL VOLUME 90.2 fL (80.0-94.0); MEAN CORPUSCULAR HEMOGLOBIN 29.9 pg (27.0-31.0); MEAN CORPUSCULAR HGB CONC 33.2 g/dL (33.0-37.0); MEAN PLATELET VOLUME 10.2 fL (7.2-11.7); MONO # 1.1 K/uL (0.0-0.8); MONO % 19.5 % (0.0-10.0); NEUT # 3.2 K/uL (1.8-7.0); NEUT % 56.9 % (50.0-75.0); NRBC % 0.1 % (0.0-2.0); RBC 4.41 Mil/uL (4.40-5.90); RED CELL DISTRIBUTION WIDTH 16.5 % (11.5-14.5); WHITE BLOOD COUNT 5.7 K/uL (4.8-10.8)
[2017-11-15 07:53] LABS: ALBUMIN 3.7 g/dL (3.5-5.0); ALT/SGPT 23 U/L (21-72); AST/SGOT 12 U/L (17-59); BLOOD UREA NITROGEN 36 mg/dL (9-20); CALCIUM 8.9 mg/dl (8.6-10.4); GFR AFRICAN-AMERICAN 11; GFR NON-AFRICAN AMERICAN 9
[2017-11-15] MEDS: Albuterol 0.083% Inhal Sol (2.5 mg/3 mL) UD IH SCH ×2 (08:10→17:08)
[2017-11-15] MEDS: Mometasone 220 mcg/puff-14 puff Inh INH SCH (08:12)
[2017-11-15 08:16] LABS: HEPATITIS B SURFACE AG Negative (NEGATIVE)
[2017-11-15] MEDS: (Novolog) Insulin Aspart, Recombinant 100 u/ml 10 ml vial SC SCH ×4 (08:30→22:14)
[2017-11-15] MEDS ORDERED: Pneumococcal 23-Valent Vaccine IM ONE (10:00)
[2017-11-15] MEDS: Multivitamin Vitamin B Complex (Nephro-Vite) Tab PO SCH (10:11)
[2017-11-15] MEDS: Pantoprazole 40 mg EC Tab PO SCH (10:11)
[2017-11-15] MEDS: Oseltamivir 6 MG/ML PO SCH (10:12)
--- NOTE | 2017-11-15 21:49 | CP.PCM.PN ---
Subjective - Date & Time of Evaluation Date of Evaluation: 11/15/17 Time of Evaluation: 21:49 - Subjective Subjective: AFEBRILE, oUT OF BED ON CHAIR. sTATES HE IS FEELING MUCH BETTER SOB/COUGH MUCH IMPROVED. lABS REVIEWED; MRSA -NOT DETECTED bLOOD CULTURES -VE GROWTH TO DATE. iNFLUENZA SEROLOGY A POSITIVE SPUTUM FEW PMNS,fEW GRAM-POSITIVE COCCI IMPAIRS.-cULTURE PENDING. Objective - Vital Signs/Intake and Output Vital Signs (last 24 hours): Temp Pulse Resp BP Pulse Ox 97.6 F 73 20 114/61 95 11/15/17 17:14 11/15/17 17:14 11/15/17 17:14 11/15/17 17:14 11/15/17 17:14 Intake and Output: 11/15/17 11/16/17 18:59 06:59 Intake Total 290 Balance 290 - Medications Medications: Current Medications Acetaminophen (Tylenol 325mg Tab) 650 mg PO Q6 PRN PRN Reason: Fever >100.4 F Last Admin: 11/13/17 00:41 Dose: 650 mg Albuterol Sulfate (Albuterol 0.083% Inhal Haydee (2.5 Mg/3 Ml) Ud) 2.5 mg IH RQ8 [facility] Last Admin: 11/15/17 17:08 Dose: Not Given Allopurinol (Zyloprim) 100 mg PO DAILY [facility] Last Admin: 11/15/17 10:11 Dose: 100 mg Amlodipine Besylate (Norvasc) 5 mg PO DAILY [facility] Last Admin: 11/15/17 10:12 Dose: 5 mg Ergocalciferol (Drisdol 50,000 Intl Units Cap) 1 cap PO Q7D [facility] Gabapentin (Neurontin) 100 mg PO BID [facility] Last Admin: 11/15/17 17:56 Dose: 100 mg Heparin Sodium (Porcine) (Heparin) 5,000 units SC Q12 [facility] Last Admin: 11/15/17 10:12 Dose: 5,000 units Piperacillin Sod/Tazobactam Sod (Zosyn 2.25 Gm Iv Premix) 2.25 gm in 50 mls @ 100 mls/hr IVPB Q8H [facility] Last Admin: 11/15/17 14:29 Dose: 100 mls/hr Vancomycin/Sodium Chloride (Vancomycin 1 Gm/Ns 200 Ml) 1 gm in 200 mls @ 166.7 mls/hr IVPB TTS [facility] Stop: 11/19/17 10:01 Last Admin: 11/14/17 18:52 Dose: 166.7 mls/hr Insulin Aspart (Novolog) 0 unit SC ACHS [facility] PRN Reason: Protocol Last Admin: 11/15/17 17:56 Dose: 1 unit Insulin Glargine (Lantus) 30 unit SC HS [facility] Last Admin: 11/14/17 21:28 Dose: 30 units Labetalol HCl (Trandate) 100 mg PO BID [facility] Mometasone Furoate (Asmanex Twisthaler 220 Mcg) 1 puff INH RQ24 [facility] Last Admin: 11/15/17 08:12 Dose: Not Given Oseltamivir Phosphate (Tamiflu Susp) 30 mg PO DAILY [facility] Last Admin: 11/15/17 10:12 Dose: 30 mg Pantoprazole Sodium (Protonix Ec Tab) 40 mg PO DAILY [facility] Last Admin: 11/15/17 10:11 Dose: 40 mg Sevelamer Carbonate (Renvela) 800 mg PO TIDCC [facility] Last Admin: 11/15/17 14:29 Dose: 800 mg Vitamin B Complex/Vit C/Folic Acid (Nephro-Joss) 1 tab PO DAILY [facility] Last Admin: 11/15/17 10:11 Dose: 1 tab Zolpidem Tartrate (Ambien) 5 mg PO PRN PRN Reason: Insomnia - Labs Labs: 11/15/17 07:14 11/15/17 07:14 - Constitutional Appears: No Acute Distress - Head Exam Head Exam: NORMAL INSPECTION - Eye Exam Eye Exam: EOMI, PERRL - ENT Exam ENT Exam: Normal Oropharynx - Neck Exam Neck Exam: Normal Inspection - Respiratory Exam Respiratory Exam: NORMAL BREATHING PATTERN (bilateral breath sounds increased aeration.few rhonchi right side.) - Cardiovascular Exam Cardiovascular Exam: REGULAR RHYTHM, +S1, +S2 - GI/Abdominal Exam GI & Abdominal Exam: Soft, Normal Bowel Sounds - Extremities Exam Extremities Exam: absent: Calf Tenderness, Pedal Edema, Tenderness - Neurological Exam Neurological Exam: Alert, Awake, CN II-XII Intact, Normal Gait, Oriented x3, Reflexes Normal - Psychiatric Exam Psychiatric exam: Normal Mood - Skin Skin Exam: Normal Color, Warm Assessment and Plan (1) Pneumonia Status: Acute (2) Influenza A Status: Acute (3) Fever Status: Acute (4) Congestive heart failure Status: Chronic (5) Coronary artery disease Status: Chronic (6) ESRD (end stage renal disease) on dialysis Status: Chronic (7) Type II diabetes mellitus Status: Chronic - Assessment and Plan (Free Text) Plan: CONTINUE iv BY MOUTH TAMIFLU 30 MG BY MOUTH DAILY.11/12/17. CONTINUE ZOSYN 2.25 EVERY 8 HOURLY.11/12/17. CONTINUE iv VANCOMYCIN 1 G POST EACH HEMODIALYSIS TTS X 5 DOSES. 11/12/17 MONITOR VANCO TROUGH LEVELS AND KEEP BETWEEN 10 AND 20. [place] PRECAUTIONS FOR INFLUENZ A. F/U CULTURES AND ADJUST ANTIBIOTICS. f/u PORTABLE CHEST X-RAY IN A.M. TO EVALUATE RIGHT MIDDLE LOBE PNEUMONIA.
[2017-11-15] MEDS: (Lantus) Insulin Glargine, Recombinant SC SCH (22:25)
[2017-11-16] MEDS: Albuterol 0.083% Inhal Sol (2.5 mg/3 mL) UD IH SCH ×4 (01:30→23:49)
[2017-11-16] MEDS: Piperacill/Tazo 2.25gm in Dex 2.25 GM/50 ML BAG IVPB SCH ×3 (03:15→19:05)
--- NOTE | 2017-11-16 04:35 | PN ---
DATE: 11/15/2017 The patient is seen today on 11/15/2017. OBJECTIVE: VITAL SIGNS: He is afebrile with blood pressure 114/61, temperature 97.6, respiratory rate 20, and pulse 73. HEENT: Pupils are equal and reactive to light. Normal appearing mucosa of the conjunctivae, oropharynx and nasal membrane mucosa. NECK: Supple. No JVD. No carotid bruit. No lymph nodes. No thyromegaly. CHEST/LUNGS: Bilateral symmetrical expansion. Good air exchange. No rales, no rhonchi. CARDIOVASCULAR SYSTEM: PMI not localized. S1 and S2. No additional sounds. ABDOMEN: Normoactive bowel sounds. No tenderness. No organomegaly. No masses. EXTREMITIES: No cyanosis, no clubbing, no edema. DANCE DIRECTOR: Alert, awake, oriented x2. No neurological deficit could be appreciated. ASSESSMENT: 1. Pneumonia. 2. Influenza A positive. 3. Hypertension. 4. End-stage renal disease, on hemodialysis. PLAN: Continue current IV antibiotics and antiviral medications. Continue hemodialysis as per relocation director. Accu-Cheks with insulin coverage as needed. Mi Hoffmann MD
[2017-11-16 07:32] LABS: BASO % 0.8 % (0.0-2.0); EOS # 0.5 K/uL (0.0-0.7); EOS % 8.8 % (0.0-4.0); HEMOGLOBIN 13.2 g/dL (12.0-18.0); LYMPH # 0.9 K/uL (1.0-4.3); LYMPH % 16.8 % (20.0-40.0); MEAN CELL VOLUME 89.9 fL (80.0-94.0); MEAN CORPUSCULAR HEMOGLOBIN 29.9 pg (27.0-31.0); MEAN CORPUSCULAR HGB CONC 33.3 g/dL (33.0-37.0); MEAN PLATELET VOLUME 10.5 fL (7.2-11.7); MONO # 0.8 K/uL (0.0-0.8); MONO % 14.9 % (0.0-10.0); NEUT # 3.3 K/uL (1.8-7.0); NEUT % 58.7 % (50.0-75.0); RBC 4.43 Mil/uL (4.40-5.90); RED CELL DISTRIBUTION WIDTH 16.7 % (11.5-14.5); WHITE BLOOD COUNT 5.6 K/uL (4.8-10.8)
[2017-11-16 07:57] LABS: ALB/GLOB RATIO 1.1 (1.0-2.1); ALBUMIN 3.8 g/dL (3.5-5.0)
[2017-11-16] MEDS: Mometasone 220 mcg/puff-14 puff Inh INH SCH (08:43)
[2017-11-16] MEDS: Oseltamivir 6 MG/ML PO SCH (09:45)
[2017-11-16] MEDS: Vancomycin 1 gm/NS 200 ml 1 GM/200 ML BAG IVPB SCH ×3 (09:46→19:04)
[2017-11-16] MEDS: Multivitamin Vitamin B Complex (Nephro-Vite) Tab PO SCH (09:47)
[2017-11-16] MEDS: Pantoprazole 40 mg EC Tab PO SCH (09:47)
[2017-11-16] MEDS: (Novolog) Insulin Aspart, Recombinant 100 u/ml 10 ml vial SC SCH ×4 (09:48→22:38)
--- NOTE | 2017-11-16 10:39 | RAD ---
HISTORY: right-sided pneumonia COMPARISON: Chest x-ray performed 11/12/17 TECHNIQUE: Chest, one view. FINDINGS: Examination limited by habitus. LUNGS: Increasing bilateral pulmonary infiltrates and interstitial prominence. Small right pleural effusion. No definite pneumothorax. CARDIOVASCULAR: Cardiomegaly. Left-sided AICD. Median sternotomy wires. OSSEOUS STRUCTURES: Degenerative changes. VISUALIZED UPPER ABDOMEN: Unremarkable. OTHER FINDINGS: None. IMPRESSION: Increasing bilateral pulmonary infiltrates and interstitial prominence. Small right pleural effusion. Cardiomegaly. Left-sided AICD. Median sternotomy wires.
--- NOTE | 2017-11-16 11:02 | CP.PCM.PN ---
Subjective - Date & Time of Evaluation Date of Evaluation: 11/16/17 Time of Evaluation: 10:00 - Subjective Subjective: SEEN ON RENAL F/U SEEN ON HD FEELS IMPROVED ALL PREVIOUS EMR REVIEWED Objective - Vital Signs/Intake and Output Vital Signs (last 24 hours): Temp Pulse Resp BP Pulse Ox 97.9 F 75 20 128/70 98 11/16/17 07:50 11/16/17 07:50 11/16/17 07:50 11/16/17 07:50 11/16/17 07:50 Intake and Output: 11/16/17 11/16/17 06:59 18:59 Intake Total 240 Balance 240 - Medications Medications: Current Medications Acetaminophen (Tylenol 325mg Tab) 650 mg PO Q6 PRN PRN Reason: Fever >100.4 F Last Admin: 11/13/17 00:41 Dose: 650 mg Albuterol Sulfate (Albuterol 0.083% Inhal Haydee (2.5 Mg/3 Ml) Ud) 2.5 mg IH RQ8 [facility] Last Admin: 11/16/17 08:10 Dose: 2.5 mg Allopurinol (Zyloprim) 100 mg PO DAILY [facility] Last Admin: 11/16/17 09:47 Dose: 100 mg Amlodipine Besylate (Norvasc) 5 mg PO DAILY [facility] Last Admin: 11/16/17 09:47 Dose: 5 mg Ergocalciferol (Drisdol 50,000 Intl Units Cap) 1 cap PO Q7D [facility] Gabapentin (Neurontin) 100 mg PO BID [facility] Last Admin: 11/16/17 09:47 Dose: 100 mg Piperacillin Sod/Tazobactam Sod (Zosyn 2.25 Gm Iv Premix) 2.25 gm in 50 mls @ 100 mls/hr IVPB Q8H [facility] Last Admin: 11/16/17 03:15 Dose: Not Given Vancomycin/Sodium Chloride (Vancomycin 1 Gm/Ns 200 Ml) 1 gm in 200 mls @ 166.7 mls/hr IVPB TTS [facility] Stop: 11/19/17 10:01 Last Admin: 11/14/17 18:52 Dose: 166.7 mls/hr Insulin Aspart (Novolog) 0 unit SC ACHS [facility] PRN Reason: Protocol Last Admin: 11/16/17 09:48 Dose: Not Given Insulin Glargine (Lantus) 30 unit SC HS [facility] Last Admin: 11/15/17 22:25 Dose: 30 units Labetalol HCl (Trandate) 100 mg PO BID [facility] Last Admin: 11/15/17 18:54 Dose: 100 mg Mometasone Furoate (Asmanex Twisthaler 220 Mcg) 1 puff INH RQ24 [facility] Last Admin: 11/16/17 08:43 Dose: Not Given Oseltamivir Phosphate (Tamiflu Susp) 30 mg PO DAILY [facility] Last Admin: 11/16/17 09:45 Dose: 30 mg Pantoprazole Sodium (Protonix Ec Tab) 40 mg PO DAILY [facility] Last Admin: 11/16/17 09:47 Dose: 40 mg Sevelamer Carbonate (Renvela) 800 mg PO TIDCC [facility] Last Admin: 11/16/17 09:47 Dose: 800 mg Vitamin B Complex/Vit C/Folic Acid (Nephro-Joss) 1 tab PO DAILY [facility] Last Admin: 11/16/17 09:47 Dose: 1 tab Zolpidem Tartrate (Ambien) 5 mg PO HS PRN PRN Reason: Insomnia - Labs Labs: 11/16/17 07:10 11/16/17 07:10 Assessment and Plan - Assessment and Plan (Free Text) Assessment: ESRD ON HD TTS ANEMIA OF CKD .. H/H STABLE FLU A .. PNEUMONIA .. ON IVAB MMP P : C/O CURRENT CARE C/O PRESENT MANAGEMENT
--- NOTE | 2017-11-16 17:51 | CP.PCM.PN ---
Subjective - Date & Time of Evaluation Date of Evaluation: 11/16/17 Time of Evaluation: 17:51 - Subjective Subjective: AFEBRILE, S/P HD TODAY STATES HE IS FEELING MUCH BETTER SOB/COUGH MUCH IMPROVED. lABS REVIEWED; MRSA -NOT DETECTED bLOOD CULTURES -VE GROWTH TO DATE. iNFLUENZA SEROLOGY A POSITIVE SPUTUM FEW PMNS,fEW GRAM-POSITIVE COCCI IMPAIRS. NORMAL LEEANNE Objective - Vital Signs/Intake and Output Vital Signs (last 24 hours): Temp Pulse Resp BP Pulse Ox 97.6 F 74 16 116/93 H 100 11/16/17 15:50 11/16/17 15:50 11/16/17 15:50 11/16/17 17:35 11/16/17 15:20 Intake and Output: 11/16/17 11/16/17 06:59 18:59 Intake Total 240 Balance 240 - Medications Medications: Current Medications Acetaminophen (Tylenol 325mg Tab) 650 mg PO Q6 PRN PRN Reason: Fever >100.4 F Last Admin: 11/13/17 00:41 Dose: 650 mg Albuterol Sulfate (Albuterol 0.083% Inhal Haydee (2.5 Mg/3 Ml) Ud) 2.5 mg IH RQ8 [facility] Last Admin: 11/16/17 16:17 Dose: Not Given Allopurinol (Zyloprim) 100 mg PO DAILY [facility] Last Admin: 11/16/17 09:47 Dose: 100 mg Amlodipine Besylate (Norvasc) 5 mg PO DAILY [facility] Last Admin: 11/16/17 09:47 Dose: 5 mg Ergocalciferol (Drisdol 50,000 Intl Units Cap) 1 cap PO Q7D [facility] Gabapentin (Neurontin) 100 mg PO BID [facility] Last Admin: 11/16/17 09:47 Dose: 100 mg Piperacillin Sod/Tazobactam Sod (Zosyn 2.25 Gm Iv Premix) 2.25 gm in 50 mls @ 100 mls/hr IVPB Q8H [facility] Last Admin: 11/16/17 11:55 Dose: Not Given Vancomycin/Sodium Chloride (Vancomycin 1 Gm/Ns 200 Ml) 1 gm in 200 mls @ 166.7 mls/hr IVPB TTS [facility] Stop: 11/19/17 10:01 Last Admin: 11/16/17 11:55 Dose: Not Given Insulin Aspart (Novolog) 0 unit SC ACHS [facility] PRN Reason: Protocol Last Admin: 11/16/17 11:52 Dose: Not Given Insulin Glargine (Lantus) 30 unit SC HS [facility] Last Admin: 11/15/17 22:25 Dose: 30 units Labetalol HCl (Trandate) 100 mg PO BID [facility] Last Admin: 11/16/17 11:55 Dose: Not Given Mometasone Furoate (Asmanex Twisthaler 220 Mcg) 1 puff INH RQ24 [facility] Last Admin: 11/16/17 08:43 Dose: Not Given Oseltamivir Phosphate (Tamiflu Susp) 30 mg PO DAILY [facility] Last Admin: 11/16/17 09:45 Dose: 30 mg Pantoprazole Sodium (Protonix Ec Tab) 40 mg PO DAILY [facility] Last Admin: 11/16/17 09:47 Dose: 40 mg Sevelamer Carbonate (Renvela) 800 mg PO TIDCC [facility] Last Admin: 11/16/17 13:05 Dose: 800 mg Vitamin B Complex/Vit C/Folic Acid (Nephro-Joss) 1 tab PO DAILY [facility] Last Admin: 11/16/17 09:47 Dose: 1 tab Zolpidem Tartrate (Ambien) 5 mg PO PRN PRN Reason: Insomnia - Labs Labs: 11/16/17 07:10 11/16/17 07:10 - Constitutional Appears: No Acute Distress - Head Exam Head Exam: NORMAL INSPECTION - Eye Exam Eye Exam: EOMI, PERRL - ENT Exam ENT Exam: Normal Oropharynx - Neck Exam Neck Exam: Normal Inspection - Respiratory Exam Respiratory Exam: Rhonchi (SCATTERRED RHONCHI.), NORMAL BREATHING PATTERN - Cardiovascular Exam Cardiovascular Exam: REGULAR RHYTHM, +S1, +S2 - GI/Abdominal Exam GI & Abdominal Exam: Soft, Normal Bowel Sounds - Extremities Exam Extremities Exam: Normal Capillary Refill. absent: Calf Tenderness, Pedal Edema - Psychiatric Exam Psychiatric exam: Normal Mood - Skin Skin Exam: Normal Color, Warm Assessment and Plan (1) Pneumonia Assessment & Plan: F/U CXR AFTER HD. CONTINUE PO TAMIFLUE CONTINUE IV ZOSYN. Status: Acute (2) Influenza A Status: Acute (3) Fever Status: Acute (4) Congestive heart failure Status: Chronic (5) Coronary artery disease Status: Chronic (6) ESRD (end stage renal disease) on dialysis Status: Chronic (7) Type II diabetes mellitus Status: Chronic
[2017-11-16] MEDS: (Lantus) Insulin Glargine, Recombinant SC SCH (22:45)
[2017-11-17 00:53] VITALS: RESP 20
[2017-11-17] MEDS: Piperacill/Tazo 2.25gm in Dex 2.25 GM/50 ML BAG IVPB SCH ×3 (04:40→11:59)
[2017-11-17] MEDS: Albuterol 0.083% Inhal Sol (2.5 mg/3 mL) UD IH SCH ×3 (07:40→23:40)
[2017-11-17] MEDS: (Novolog) Insulin Aspart, Recombinant 100 u/ml 10 ml vial SC SCH ×5 (07:49→21:43)
[2017-11-17] MEDS: Oseltamivir 6 MG/ML PO SCH (09:55)
[2017-11-17] MEDS: Pantoprazole 40 mg EC Tab PO SCH (09:55)
[2017-11-17] MEDS: Multivitamin Vitamin B Complex (Nephro-Vite) Tab PO SCH (09:59)
[2017-11-17] MEDS: Mometasone 220 mcg/puff-14 puff Inh INH SCH (11:44)
[2017-11-17] MEDS: (Lantus) Insulin Glargine, Recombinant SC SCH (22:19)
[2017-11-18] MEDS: (Novolog) Insulin Aspart, Recombinant 100 u/ml 10 ml vial SC SCH ×2 (07:48→12:10)
[2017-11-18 08:22] VITALS: BP 118/65; PULSE 73; TEMP 97.8; O2SAT 97
[2017-11-18] MEDS: Multivitamin Vitamin B Complex (Nephro-Vite) Tab PO SCH (09:04)
[2017-11-18] MEDS: Pantoprazole 40 mg EC Tab PO SCH (09:04)
--- NOTE | 2017-11-18 10:02 | PN ---
DATE: 11/16/2017. PHYSICAL EXAMINATION: VITAL SIGNS: During hemodialysis blood pressure is 147/92, temperature 98.4, respiratory rate 18 and pulse 74. HEENT: Pupils equal, reactive to light. Normal-appearing mucosa of the conjunctivae, oropharynx and nasal membrane mucosa. NECK: Supple. No JVD. No carotid bruit. No lymph nodes. No thyromegaly. CHEST AND LUNGS: Bilateral symmetrical expansion. Good air exchange. No rales, no rhonchi. CARDIOVASCULAR SYSTEM: PMI not localized. S1 and S2. No additional sounds. ABDOMEN: Normoactive bowel sounds. No tenderness. No organomegaly. No masses. EXTREMITIES: No cyanosis, no clubbing, no edema. PROTOZOOLOGIST: Alert, awake, oriented x2. No neurological deficit could be appreciated. ASSESSMENT: 1. End-stage renal disease on hemodialysis. 2. Pneumonia. 3. Influenza A viral syndrome. 4. Hypertension. PLAN: Continue current medications and antibiotics as per ID and will monitor the patient on current antibiotics. Mary MD Shun
[2017-11-18 11:54] LABS: BASO % 0.7 % (0.0-2.0); EOS # 0.3 K/uL (0.0-0.7); EOS % 5.9 % (0.0-4.0); LYMPH # 1.1 K/uL (1.0-4.3); LYMPH % 19.7 % (20.0-40.0); MEAN CELL VOLUME 90.2 fL (80.0-94.0); MEAN CORPUSCULAR HEMOGLOBIN 29.5 pg (27.0-31.0); MEAN CORPUSCULAR HGB CONC 32.7 g/dL (33.0-37.0); MEAN PLATELET VOLUME 10.3 fL (7.2-11.7); MONO # 0.7 K/uL (0.0-0.8); MONO % 11.5 % (0.0-10.0); NEUT # 3.6 K/uL (1.8-7.0); NEUT % 62.2 % (50.0-75.0); NRBC % 0.1 % (0.0-2.0); RBC 4.41 Mil/uL (4.40-5.90); RED CELL DISTRIBUTION WIDTH 16.4 % (11.5-14.5); WHITE BLOOD COUNT 5.7 K/uL (4.8-10.8)
--- NOTE | 2017-11-18 12:03 | CP.PCM.PN ---
Subjective - Date & Time of Evaluation Date of Evaluation: 11/18/17 Time of Evaluation: 12:03 - Subjective Subjective: PATIENT WAS ADMITTED FOR PNEUMONIA AND FLU; LYING DOWN; AAOX3; DENIES ANY SOB CHEST PAIN NAUSEA OR VOMITING NO SIGN OF DISTRESS NOTED Objective - Vital Signs/Intake and Output Vital Signs (last 24 hours): Temp Pulse Resp BP Pulse Ox 97.8 F 73 20 118/65 97 11/18/17 07:25 11/18/17 07:25 11/18/17 07:25 11/18/17 07:25 11/18/17 07:25 - Medications Medications: Current Medications Acetaminophen (Tylenol 325mg Tab) 650 mg PO Q6 PRN PRN Reason: Fever >100.4 F Last Admin: 11/13/17 00:41 Dose: 650 mg Albuterol Sulfate (Albuterol 0.083% Inhal [place] (2.5 Mg/3 Ml) Ud) 2.5 mg IH RQ8 [facility] Last Admin: 11/17/17 23:40 Dose: 2.5 mg Allopurinol (Zyloprim) 100 mg PO DAILY [facility] Last Admin: 11/18/17 09:04 Dose: 100 mg Amlodipine Besylate (Norvasc) 5 mg PO DAILY [facility] Last Admin: 11/18/17 09:04 Dose: 5 mg Ergocalciferol (Drisdol 50,000 Intl Units Cap) 1 cap PO Q7D [facility] Gabapentin (Neurontin) 100 mg PO BID [facility] Last Admin: 11/18/17 09:04 Dose: 100 mg Vancomycin/Sodium Chloride (Vancomycin 1 Gm/Ns 200 Ml) 1 gm in 200 mls @ 166.7 mls/hr IVPB TTS [facility] Stop: 11/19/17 10:01 Last Admin: 11/16/17 19:04 Dose: 166.7 mls/hr Insulin Aspart (Novolog) 0 unit SC ACHS [facility] PRN Reason: Protocol Last Admin: 11/18/17 07:48 Dose: Not Given Insulin Glargine (Lantus) 30 unit SC HS [facility] Last Admin: 11/17/17 22:19 Dose: 30 units Labetalol HCl (Trandate) 100 mg PO BID [facility] Last Admin: 11/18/17 09:05 Dose: 100 mg Mometasone Furoate (Asmanex Twisthaler 220 Mcg) 1 puff INH RQ24 [facility] Last Admin: 11/17/17 11:44 Dose: Not Given Pantoprazole Sodium (Protonix Ec Tab) 40 mg PO DAILY [facility] Last Admin: 11/18/17 09:04 Dose: 40 mg Sevelamer Carbonate (Renvela) 800 mg PO TIDCC [facility] Last Admin: 11/18/17 08:54 Dose: 800 mg Vitamin B Complex/Vit C/Folic Acid (Nephro-Joss) 1 tab PO DAILY [facility] Last Admin: 11/18/17 09:04 Dose: 1 tab Zolpidem Tartrate (Ambien) 5 mg PO HS PRN PRN Reason: Insomnia - Labs Labs: 11/18/17 11:43 11/16/17 07:10 Assessment and Plan - Assessment and Plan (Free Text) Assessment: PATIENT SEEN AND EXAMINED AT THE BEDSIDE LUNG SOUND CLEAR NO COUGH NOTED PER PATIENT HE HAD NORMAL BM AFTER ZOSYN WAS DC AND NO MORE DIARRHEA PATIENT RECEIVE 5 DAYS OF TAMILFU DURING HIS STAY DISCUSS WITH DR GARCIA AND DR HEARD WHO AGREE AND CLEAR PATIENT FOR DC FOLLOW UP WITH DR HEARD IN A WEEK AT HIS OFFICE ---CALL FOR APPOINTMENT FOLLOW UP WITH YOUR REGULAR DIALYSIS [place] USUAL CONTINUE ALL YOUR HOME MEDICATION ORDER ACTIVITY TOLERATED CALL DR HEARD OR EMERGENCY ROOM IF SYMPTOM RETURN OR WORSENING DISCUSS WITH PATIENT WHO AGREE AND VERBALIZED UNDERSTANDING
[2017-11-18 13:19] LABS: ALB/GLOB RATIO 1.1 (1.0-2.1); ALBUMIN 3.9 g/dL (3.5-5.0)
[2017-11-18] MEDS: Albuterol 0.083% Inhal Sol (2.5 mg/3 mL) UD IH SCH (13:38)
--- NOTE | 2017-11-18 15:17 | CP.PCM.PN ---
Subjective - Date & Time of Evaluation Date of Evaluation: 11/18/17 Time of Evaluation: 13:00 - Subjective Subjective: SEEN ON RENAL F/U SEEN ON HD FOR D/C POST HD FEELS BETTER ALL PREVIOUS EMR REVIEWED Objective - Vital Signs/Intake and Output Vital Signs (last 24 hours): Temp Pulse Resp BP Pulse Ox 97.8 F 73 20 118/65 97 11/18/17 07:25 11/18/17 07:25 11/18/17 07:25 11/18/17 07:25 11/18/17 07:25 - Labs Labs: 11/18/17 11:43 11/18/17 09:05 Assessment and Plan - Assessment and Plan (Free Text) Assessment: ESRD ON HD M W F ANEMIA OF CKD .. H/H STABLE FLU A AND PNEUMONIA MMP P : C/O CURRENT CARE C/O PRESENT MANAGEMENT PT IS CLEAR TO BE D/C WILL F/U AN OUT PT
[2017-11-19] MEDS ORDERED: Ergocalciferol 50,000 Intl Units Cap PO SCH (10:00)
--- NOTE | 2017-11-19 11:07 | DS ---
REASON FOR ADMISSION: This is a 62-year-old male with history of multiple medical problems including end-stage renal disease on hemodialysis was admitted for pneumonia and influenza A virus positive. COURSE OF HOSPITALIZATION: The patient was admitted to medical floor and he was kept on droplet isolation. The patient was started on Tamiflu as well as IV antibiotics because of the lung opacifications suggestive of pneumonia and respiratory symptoms. The patient was continued on hemodialysis as per his plate maker zinc. The patient did well and became afebrile and the respiratory symptoms completely resolved. The patient was discharged home to follow up with his primary care physician and plate maker zinc for hemodialysis and to resume his preadmission medications. FINAL DIAGNOSES: Influenza A viral infection, pneumonia, end-stage renal disease on hemodialysis, and hypertension. [facility] MD Shun cc:
== END 2017-11-18 14:23 | disposition home or self-care (01) | DRG 193 ==
LOC: C.ER 14:25 → C.5S 17:49 → C.9E 17:49
PROVIDERS: ADMIT Internal Medicine; ATTEND Internal Medicine
PROC: 5A1D70Z Performance of Urinary Filtration, Intermittent, Less than 6 Hours Per Day (ICD-10-PCS; principal; 2017-11-14)
PROC: 5A1D70Z Performance of Urinary Filtration, Intermittent, Less than 6 Hours Per Day (ICD-10-PCS; 2017-11-16)
DX: J10.00 Influenza due to other identified influenza virus with unspecified type of pneumonia (principal); N18.6 End stage renal disease; I13.2 Hypertensive heart and chronic kidney disease with heart failure and with stage 5 chronic kidney disease, or end stage renal disease; E11.22 Type 2 diabetes mellitus with diabetic chronic kidney disease; I50.9 Heart failure, unspecified; I25.10 Atherosclerotic heart disease of native coronary artery without angina pectoris; D63.1 Anemia in chronic kidney disease; E78.00 Pure hypercholesterolemia, unspecified; Y95 Nosocomial condition; Z86.73 Personal history of transient ischemic attack (TIA), and cerebral infarction without residual deficits; Z95.0 Presence of cardiac pacemaker; Z87.891 Personal history of nicotine dependence; Z95.1 Presence of aortocoronary bypass graft; Z95.5 Presence of coronary angioplasty implant and graft; Z99.2 Dependence on renal dialysis